=== PATIENT | female | born 2000 | race Caucasian/White ===

== ENCOUNTER → 2025-03-13 | Outpatient (CLI) | payer BC, MEDICAID ==
[~2025-03-13] MED LIST: METF10004 PO; PRENTAB9 PO
[2025-03-13 11:06] LABS: HEMATOCRIT 35.1 % (36.0-47.0); HEMOGLOBIN 12.5 g/dl (12.0-15.5); MEAN CORPUSCULAR HEMOGLOBIN 33.1 pg (27.0-33.0); MEAN CORPUSCULAR HGB CONC 35.6 g/dl (32.0-36.5); MEAN CORPUSCULAR VOLUME 92.9 fl (80.0-96.0); PLATELET COUNT, AUTOMATED 170 10^3/uL (150-450); RED BLOOD COUNT 3.78 10^6/uL (4.00-5.40); WHITE BLOOD COUNT 8.2 10^3/uL (4.0-10.0)
== END ==
LOC: M PLALAB 09:32
PROVIDERS: ATTEND Nurse Practitioner Family
DX: Z34.93 Encounter for supervision of normal pregnancy, unspecified, third trimester (principal); Z3A.37 37 weeks gestation of pregnancy

== ENCOUNTER → 2025-03-13 | Outpatient (REF) | payer BC, MEDICAID | LOC: M PLALAB 08:38 | PROVIDERS: ATTEND Nurse Practitioner Family | DX: Z36.85 Encounter for antenatal screening for Streptococcus B (principal); Z3A.37 37 weeks gestation of pregnancy ==

== ENCOUNTER 2025-03-14 02:50 | Inpatient (IN) | payer BC, MEDICAID ==
[~2025-03-14] VITALS: Ht 170.2 cm; Wt 106.4 kg
[2025-03-14] VITALS (49 sets, daily range): BP systolic 99–131; BP diastolic 49–81; O2SAT 98
[2025-03-14] MEDS ORDERED: PRENTAB9 PO (03:03)
[2025-03-14] MEDS ORDERED: METF10004 PO (03:11)
[2025-03-14] MEDS ORDERED: PENICILLIN G POTASSIUM 5 MU IV 5 MU in DEXTROSE 5% (D5W) MINI-BAG PLU 100 ML IV STA (03:42)
[2025-03-14] MEDS ORDERED: LIDOCAINE 1% MDV 20ML VIAL INFIL PRN (03:45)
[2025-03-14] MEDS ORDERED: METHYLERGONOVINE MALEATE 0.2MG/ML 1ML VIAL IM PRN (03:45)
[2025-03-14] MEDS ORDERED: TRANEXAMIC ACID INJection 1,000 MG in NS 100 ML IV PRN (03:45)
[2025-03-14] MEDS ORDERED: CARBOPROST TROMETHAMINE 250 MCG/ML AMP IM PRN (03:45)
[2025-03-14] MEDS ORDERED: OXYTOCIN DRIP 30 UNITS in IV 1 EA IV PRN (03:45)
[2025-03-14 05:10] LABS: BASO % 0.2 % (0.0-1.0); EOS % 0.3 % (0.0-3.0); HEMATOCRIT 34.3 % (36.0-47.0); HEMOGLOBIN 12.2 g/dl (12.0-15.5); LYMPH # 2.6 10^3/uL (1.5-5.0); LYMPH % 27.7 % (24.0-44.0); MEAN CORPUSCULAR HGB CONC 35.6 g/dl (32.0-36.5); MEAN CORPUSCULAR VOLUME 92.7 fl (80.0-96.0); MONO # 0.4 10^3/uL (0.0-0.8); MONO % 4.6 % (2.0-8.0); NEUTROPHILS # 6.2 10^3/uL (1.5-8.5); NEUTROPHILS % 66.6 % (36.0-66.0); PLATELET COUNT, AUTOMATED 160 10^3/uL (150-450); WHITE BLOOD COUNT 9.3 10^3/uL (4.0-10.0)
[2025-03-14 06:04] LABS: HIV 1&2 SCREEN NEGATIVE (NEGATIVE)
[2025-03-14 06:11] LABS: HEPATITIS C VIRUS ABY INDEX 0.07 INDEX (<0.8)
[2025-03-14] MEDS ORDERED: PEN G POT 3,000,000 UNIT/50 ML 3,000,000 UNIT in IV 1 EA IV SCH (07:45)
[2025-03-14] MEDS: PEN G POT 3,000,000 UNIT/50 ML 3,000,000 UNIT in IV 1 EA IV SCH (08:00)
[2025-03-14] MEDS: PENICILLIN G POTASSIUM 5 MU IV 5 MU in DEXTROSE 5% (D5W) MINI-BAG PLU 100 ML IV STA (08:01)
[2025-03-14] MEDS: LR 1,000 ML IV SCH (08:01)
[2025-03-14] MEDS ORDERED: **PENDING PCN ENTRY XX SCH (09:00)
[2025-03-14] MEDS: ONDANSETRON 4MG 2ML VIAL IV SCH (10:20)
[2025-03-14] MEDS: OXYTOCIN DRIP 30 UNITS in IV 1 EA IV SCH (10:42)
[2025-03-14] MEDS ORDERED: FENTANYL 2MCG/ML ROPIVACAINE 0.2% IN 0.9% NACL 100ML IVBAG As Ordered ONE (13:18)
[2025-03-14] MEDS ORDERED: LR 500 ML IV PRN (13:20)
[2025-03-14] MEDS ORDERED: NALOXONE INJ 0.4MG/1ML VIAL IV PRN (13:20)
[2025-03-14] MEDS ORDERED: ePHEDrine SULFATE 25 MG/5 ML(5MG/ML) SYRINGE IVP PRN (13:20)
[2025-03-14] MEDS ORDERED: diphenhydrAMINE 50MG/ML VIAL IV PRN (13:20)
[2025-03-14] MEDS ORDERED: EPIDURAL/PCA KEYS XX PRN (13:20)
[2025-03-14] MEDS: FENTANYL/ROPIVACAINE/NACL BAG 100 ML EPIDURAL SCH (13:49)
[2025-03-14 18:06] LABS: CORD GAS ABE V -3.8; CORD GAS HCO3 V 24.8 MMOL/L; CORD GAS O2 SAT V < 0.0 %; CORD GAS PCO2 V 58.8 mmHg; CORD GAS PH V 7.243 UNITS; CORD GAS PO2 V < 10.0 mmHg; CORD GAS TCO2 V 26.6 MMOL/L
[2025-03-14 18:13] LABS: CORD GAS ABE A -7.7; CORD GAS HCO3 A 23.3 MMOL/L; CORD GAS O2 SAT A < 15.0 %; CORD GAS PCO2 A 72.1 mmHg; CORD GAS PH A 7.128 UNITS; CORD GAS TCO2 A 25.6 MMOL/L
[2025-03-14] MEDS: ONDANSETRON 4MG 2ML VIAL IV PRN (18:37)
[2025-03-14] MEDS ORDERED: ACETAMINOPHEN 500 MG TAB PO PRN (19:15)
[2025-03-14] MEDS ORDERED: ONDANSETRON 4MG 2ML VIAL IV PRN (19:15)
[2025-03-14] MEDS ORDERED: ANUSOL HC CREAM 30GM TOP PRN (19:15)
[2025-03-14] MEDS ORDERED: METHYLERGONOVINE MALEATE 0.2 MG TAB PO PRN (19:15)
[2025-03-14] MEDS ORDERED: IBUPROFEN 800 MG TAB PO PRN (19:15)
[2025-03-14] MEDS ORDERED: MOM 30ML SUSPENSION UDC PO PRN (19:15)
[2025-03-14] MEDS ORDERED: ACETAMINOPHEN 325 MG TAB PO PRN (19:15)
[2025-03-14] MEDS ORDERED: DIBUCAINE 1% OINTMENT 30GM TOP PRN (19:15)
[2025-03-15] MEDS: IBUPROFEN 600MG TAB PO PRN (05:41)
[2025-03-15 06:00] VITALS: BP 124/57; O2SAT 98
[2025-03-15] MEDS: PRENATAL VITAMINS CHEWABLE TABLET PO SCH (07:59)
[2025-03-15] MEDS: RHOGAM 300MCG (1500IU) INJ IM SCH (13:15)
[2025-03-15 18:00] VITALS: BP 121/68; O2SAT 98
[2025-03-16 06:00] VITALS: BP 134/65; O2SAT 98
[2025-03-16] MEDS: DOCUSATE SODIUM 100MG CAPSULE PO PRN (09:18)
[2025-03-16] MEDS: MEASLES,MUMPS,RUBELLA VACCINE INJ (MMR-II) SC.IMMUN ONE (09:41)
== END 2025-03-16 13:55 | disposition home or self-care (01) | DRG 560 ==
LOC: M LDO 02:50 → M LDI 03:32 → M OBS 21:00
PROVIDERS: ADMIT Specialist; ATTEND Advanced Practice Midwife
PROC: 10E0XZZ Delivery of Products of Conception, External Approach (ICD-10-PCS; principal; 2025-03-14)
DX: O70.0 First degree perineal laceration during delivery (principal); Z37.0 Single live birth; Z3A.37 37 weeks gestation of pregnancy